=== PATIENT | female | born 1955 | race Hispanic/Latino ===

== ENCOUNTER 2017-07-26 08:55 | Outpatient (CLI) | payer BC ==
--- NOTE | 2017-07-26 11:54 | MRI ---
NONCONTRAST LUMBAR SPINE MRI: INDICATIONS: Back pain. Central canal stenosis. Followup. COMPARISON: 04/27/2012 FINDINGS: Vertebral body heights maintain stable height and alignment. Slight reversal of normal lumbar lordo sis. No acute marrow edema. There is mild retrolisthesis at the L3-L4 level, stable. There is deg enerative disk signal involving L2-L3, L3-L4, and L5-S1. The conus medullaris terminates at the L1 level, normal in morphology. L5-S1: Mild disk bulge without central canal or foraminal stenosis. L4-L5: Broad-based disk bulge remains, producing mild to moderate central canal stenosis and crowdi ng of the bilateral traversing L5 nerve roots. No high grade left foraminal stenosis. There is min imal narrowing of the right neural foramen. L3-L4: There is a disk bulge with a superimposed central disk protrusion again demonstrated, with s evere central canal stenosis, progressed from prior exam. There is mild bilateral neural foraminal stenosis. L2-L3: Broad-based disk bulge with mild narrowing of the central canal. No high grade foraminal st enosis. L1-L2: No high grade central canal or neural foraminal stenosis. There is multilevel mild to moderate bilateral facet osteoarthritis. IMPRESSION: Progression of central canal stenosis, now severe in degree, involving the L3-L4 level, due to centr al disk protrusion, superimposed upon broad-based disk bulge. POS: [facility]ATHAL[facility]
== END 2017-07-26 08:56 | disposition home or self-care (01) ==
LOC: TBSIIMAG 08:55
PROVIDERS: ATTEND Student in an Organized Health Care Education/Training Program
DX: M54.9 Dorsalgia, unspecified (principal); R93.7 Abnormal findings on diagnostic imaging of other parts of musculoskeletal system; M48.061 Spinal stenosis, lumbar region without neurogenic claudication; M51.26 Other intervertebral disc displacement, lumbar region
CPT/HCPCS: 72148

== ENCOUNTER 2017-10-12 07:54 | Outpatient (CLI) | payer BC | END 2017-10-12 07:55 | disposition home or self-care (01) | LOC: BICMAMMO 07:54 | PROVIDERS: ATTEND Nurse Practitioner | DX: Z12.31 Encounter for screening mammogram for malignant neoplasm of breast (principal) | CPT/HCPCS: 77067; G0202 ==

== ENCOUNTER 2017-10-20 09:26 | Outpatient (CLI) | payer BC ==
[2017-10-20 09:47] LABS: Prothrombin Time 15.1 SEC (12.0-14.7)
[2017-10-20 09:59] LABS: ALT (SGPT) 14 U/L (8-55); AST (SGOT) 30 U/L (5-34); Alkaline Phosphatase 191 U/L (40-150); Anion Gap 9 mmol/L (10-20); BUN (Urea Nitrogen) 8 mg/dL (9.8-20.1); Bilirubin, Direct 0.4 mg/dL (0.1-0.3); Bilirubin, Total 0.9 mg/dL (0.2-1.2); Calc. Creatinine Clearance 0 mL/min (70-130); Calcium 9.3 mg/dL (7.8-10.44); Carbon Dioxide 25 mmol/L (23-31); Chloride 111 mmol/L (98-107); Estimated GFR-MDRD Greater than 90; Protein, Total 7.3 g/dL (6.0-8.3)
[2017-10-20 10:17] LABS: #Eosinphils 0.2 thou/uL (0.0-0.7); #Monocytes 0.3 thou/uL (0.11-0.59); #Neutrophils 2.4 thou/uL (1.40-6.50); %Basophils 0.6 % (0.0-1.0); %Eosinophils 3.5 % (0.0-10.0); %Lymphocytes 41.6 % (21.0-51.0); %Monocytes 5.5 % (0.0-10.0); Mean Platelet Volume 8.9 fL (7.4-10.4); Red Blood Cell (RBC) Count 4.64 mill/uL (4.20-5.40); White Blood Cell (WBC) Count 4.9 thou/uL (4.8-10.8)
--- NOTE | 2017-10-20 11:00 | RAD ---
LUMBAR SPINE FOUR VIEWS: History: Low back pain. FINDINGS: There are five lumbar type vertebrae. Pedicles are intact. Vertebral body height are maintained. Ther e is minimal degenerative retrolisthesis at the L3-4 level which does not change upon flexion or exte nsion. Osteophytosis is present throughout the vertebral bodies and facets. Osseous structures are de mineralized. There is calcification in the arterial structures. IMPRESSION: 1. Lumbar spondylosis. No evidence of compression fracture. 2. Osteoporosis. 3. Atherosclerosis. POS: NATHALIE
--- NOTE | 2017-10-20 11:34 | ULT ---
RIGHT UPPER QUADRANT ULTRASOUND: History: Cirrhosis. Right upper quadrant pain. FINDINGS: Gallbladder has a normal appearance without evidence of stones. Common duct is 0.4 cm diameter. Liver is diffusely echogenic. A cyst within the left liver lobe near the surface is 0.9 cm greatest diamet er. A well circumscribed hypoechoic lesion within the left liver lobe may represent a complex cyst, m easuring up to 1.4 cm. No free fluid is evident. IMPRESSION: 1. No evidence of gallstones or biliary obstruction. 2. Hepatosteatosis. POS: [facility]
== END 2017-10-20 09:27 | disposition home or self-care (01) ==
LOC: ULT 09:26
PROVIDERS: ATTEND Internal Medicine Gastroenterology
DX: K74.60 Unspecified cirrhosis of liver (principal); K76.0 Fatty (change of) liver, not elsewhere classified; M47.816 Spondylosis without myelopathy or radiculopathy, lumbar region; M81.0 Age-related osteoporosis without current pathological fracture; I70.90 Unspecified atherosclerosis
CPT/HCPCS: 36415; 72120; 76705; 80048; 80076; 82105; 85025; 85610; 85730

== ENCOUNTER 2018-04-14 12:06 | Outpatient (CLI) | payer BC | END 2018-04-14 12:07 | disposition home or self-care (01) | LOC: BICULT 12:06 | PROVIDERS: ATTEND Internal Medicine Gastroenterology | DX: K74.60 Unspecified cirrhosis of liver (principal) | CPT/HCPCS: 76705 ==

== ENCOUNTER 2018-05-08 12:43 | Outpatient (CLI) | payer BC ==
--- NOTE | 2018-05-08 13:14 | RAD ---
TWO VIEWS LUMBAR SPINE: History: Lumbar radiculopathy, M54.16. FINDINGS/IMPRESSION: Two views of the lumbar spine demonstrate previous lumbar laminectomy changes involving the L3 and L4 vertebral levels. The vertebral bodies are unremarkable. Some mild anterior osteophytes seen in the L2, L3, and L4 levels. No evidence of mel or retrolisthesis seen. No evidence of acute lumbar spine fracture is seen. POS: [facility]
== END 2018-05-08 12:44 | disposition home or self-care (01) ==
LOC: TBSIIMAG 12:43
PROVIDERS: ATTEND Neurological Surgery
DX: M54.16 Radiculopathy, lumbar region (principal); M25.78 Osteophyte, vertebrae; Z98.890 Other specified postprocedural states
CPT/HCPCS: 72100

== ENCOUNTER 2018-05-12 07:11 | Outpatient (CLI) | payer BC ==
--- NOTE | 2018-05-12 14:23 | NM ---
NUCLEAR MEDICINE GASTRIC EMPTYING EXAM: CLINICAL HISTORY: Unspecified sclerosis of liver and gastroparesis. TECHNIQUE: 1.8 mCi sulfur colloid administered in egg-based meal. FINDINGS: Gastric emptying half-time is approximated at 103 minutes. Examination is performed for 240 minutes at which time there is 61% emptying. IMPRESSION: 1. Gastric emptying half-time of 103 minutes. 2. At termination of the exam, 240 minutes, there is 61% gastric emptying. POS: NATHALIE
== END 2018-05-12 07:12 | disposition home or self-care (01) ==
LOC: NM 07:11
PROVIDERS: ATTEND Internal Medicine Gastroenterology
DX: K74.60 Unspecified cirrhosis of liver (principal)
CPT/HCPCS: 78264; A9541

== ENCOUNTER 2018-07-27 10:08 | Outpatient (CLI) | payer BC ==
--- NOTE | 2018-07-27 12:51 | RAD ---
FIVE VIEWS LUMBAR SPINE: Date: 07-27-18 History: Low back pain. Follow up back surgery. Comparison: 05-08-18 FINDINGS: Five non-rib bearing lumbar type vertebral bodies are again present. Laminectomy defects are again se en at L3 and L4. Scattered osteophytes are seen within the lumbar spine. There is slight retrolisthes is of L3 on L4, and the degree of retrolisthesis does not change between flexion and extension. No ad ditional level of subluxation is seen. Vertebral body heights are within normal limits and there is n o fracture identified. IMPRESSION: 1. Post-surgical changes lumbar spine related to laminectomy defects at the L3 and L4 vertebral alyssa s. 2. Slight retrolisthesis of L3 on L4. 3. No acute fracture visualized. 4. Vascular calcifications. POS: [facility]
== END 2018-07-27 10:09 | disposition home or self-care (01) ==
LOC: TBSIIMAG 10:08
PROVIDERS: ATTEND Neurological Surgery
DX: M54.5 Low back pain (principal); M51.86 Other intervertebral disc disorders, lumbar region; Z98.890 Other specified postprocedural states
CPT/HCPCS: 72120